=== PATIENT | female | born 1975 | race Caucasian/White ===

== ENCOUNTER 2020-08-31 09:46 | Outpatient (CLI) | payer OTHER | END 2020-08-31 09:47 | disposition home or self-care (01) | LOC: CSHMAMMO 09:46 | PROVIDERS: ATTEND Obstetrics & Gynecology | DX: Z12.31 Encounter for screening mammogram for malignant neoplasm of breast (principal); R92.8 Other abnormal and inconclusive findings on diagnostic imaging of breast | CPT/HCPCS: 77063; 77067 ==

== ENCOUNTER 2020-09-05 08:48 | Outpatient (CLI) | payer OTHER | END 2020-09-05 08:49 | disposition home or self-care (01) | LOC: CSHMAMMO 08:48 | PROVIDERS: ATTEND Obstetrics & Gynecology | DX: R92.8 Other abnormal and inconclusive findings on diagnostic imaging of breast (principal) | CPT/HCPCS: G0279 ==

== ENCOUNTER 2022-05-10 07:56 | Outpatient (CLI) | payer OTHER | END 2022-05-10 07:57 | disposition home or self-care (01) | LOC: CSHMAMMO 07:56 | PROVIDERS: ATTEND Obstetrics & Gynecology | DX: Z12.31 Encounter for screening mammogram for malignant neoplasm of breast (principal); N63.20 Unspecified lump in the left breast, unspecified quadrant; Z80.3 Family history of malignant neoplasm of breast; Z85.820 Personal history of malignant melanoma of skin | CPT/HCPCS: 77063; 77067 ==